=== PATIENT | male | born 1985 | race Caucasian/White ===

== ENCOUNTER 2018-05-12 01:19 | Day surgery (SDC) | payer OTHER ==
[2018-05-12] MEDS ORDERED: NORMAL SALINE 1000 ML 1,000 ML IV ONE (02:26)
[2018-05-12] MEDS ORDERED: ONDANSETRON HCL INJ/PF 4 MG/2 ML SDV IV ONE (02:26)
[2018-05-12] MEDS ORDERED: MORPHINE SULFATE 10 MG/ML INJ IV ONE (02:26)
--- NOTE | 2018-05-12 02:28 | ER Document Report ---
ED GI/ - General Chief Complaint: Abdominal Pain Stated Complaint: LOWER RIGHT ABDOMINAL PAIN Time Seen by Provider: 05/12/18 02:19 Notes: This is a 32-year-old male, healthy, no medical problems [employer] duty [employer] with a one-day history of indolent abdominal pain now localized to the right lower quadrant. Patient states that he just did not feel well over the last 24- 36 hours. Had a burning sensation in his mid abdomen. Began to get more painful over the the day. Had a few sips of Gatorade and did not feel like eating tonight. Pain began to get more significant in the periumbilical and right lower quadrant area. Now pain is mostly located on the right lower quadrant. Hurts to move his leg. Has vomited once. Slight fever. Denies any dysuria. Denies any pain in the testicles. TRAVEL OUTSIDE OF THE [place] IN LAST 30 DAYS: No - HPI Patient complains to provider of: Abdominal pain, Vomiting Onset: This morning Timing/Duration: Gradual, Worse Severity at maximum: Moderate Severity in ED: Moderate Pain Level: 3 Location: RLQ - Related Data Allergies/Adverse Reactions: ibuprofen Allergy (Verified 05/12/18 03:04) naproxen [From Aleve] Allergy (Verified 05/12/18 03:04) Hives Past Medical History - General Information source: Patient - Social History Smoking Status: Current Every Day Smoker Cigarette use (# per day): Yes Frequency of alcohol use: Occasional Drug Abuse: None Lives with: Spouse/Significant other Family History: Reviewed & Not Pertinent - Medical History Medical History: Negative Review of Systems - Review of Systems Notes: Constitutional: States he has chills and questionable fever. Does not feel good. EENT: denies: Eye discharge, Blurred vision, Tearing, Double vision, Nose congestion, Nose discharge, Throat swelling, Mouth pain Cardiovascular: denies: Palpitations, Heart racing, Orthopnea, Dyspnea. denies : Chest pain Respiratory: denies: Cough, Hurts to breathe, Wheezing, Shortness of breath Gastrointestinal: Patient complaining of abdominal pain with nausea and one episode of vomiting. Pain located in the right lower quadrant. Genitourinary: denies: Burning, Dysuria, Discharge, Frequency, Flank pain, Hematuria Musculoskeletal: denies: Joint pain, Joint swelling, Muscle pain, Muscle stiffness, back pain Hematologic/Lymphatic: denies: Anemia, Easy bleeding, Easy bruising, Blood clots Neurological/Psychological: denies: Confusion, Dementia, Depression, Loss of consciousness Physical Exam - Vital signs Vitals: Temp Pulse Resp BP Pulse Ox 98.4 F 83 17 161/90 H 100 05/12/18 01:35 05/12/18 01:35 05/12/18 01:35 05/12/18 01:35 05/12/18 01:35 Interpretation: Normal - General General appearance: Appears well, Alert - HEENT Head: Normocephalic, Atraumatic Eyes: Normal Pupils: PERRL - Respiratory Respiratory status: No respiratory distress Chest status: Nontender Breath sounds: Normal Chest palpation: Normal - Cardiovascular Rhythm: Regular Heart sounds: Normal auscultation Murmur: No - Abdominal Inspection: Normal Distension: No distension Bowel sounds: Normal Tenderness: Tender, McBurney's point, Guarding, Rebound Organomegaly: No organomegaly - Genitourinary Tenderness: Nontender Scrotum: Normal - Back Back: Normal, Nontender - Extremities General upper extremity: Normal inspection, Nontender, Normal color, Normal ROM , Normal temperature General lower extremity: Normal inspection, Nontender, Normal color, Normal ROM , Normal temperature, Normal weight bearing. No: Drew's sign - Neurological Neuro grossly intact: Yes Cognition: Normal Orientation: AAOx4 Barbara Coma Scale Eye Opening: Spontaneous Barbara Coma Scale Verbal: Oriented Barbara Coma Scale Motor: Obeys Commands [place] Coma Scale Total: 15 Speech: Normal Motor strength normal: LUE, RUE, LLE, RLE Sensory: Normal - Psychological Associated symptoms: Normal affect, Normal mood - Skin Skin Temperature: Warm Skin Moisture: Dry Skin Color: Normal Course - Re-evaluation Re-evalutation: 05/12/18 02:32 At this time we will get IV. Get some fluids. Zofran. Pain meds. CT scan of the abdomen. Labs and reassess. 05/12/18 04:05 Laboratory 05/12/18 05/12/18 02:48 02:48 WBC 16.9 H RBC 5.08 Hgb 16.1 Hct 46.9 MCV 92 MCH 31.7 MCHC 34.3 RDW 13.3 Plt Count 232 Seg Neutrophils % 82.4 H Lymphocytes % 9.8 L Monocytes % 5.8 Eosinophils % 1.1 Basophils % 0.9 Absolute Neutrophils 13.9 H Absolute Lymphocytes 1.7 Absolute Monocytes 1.0 Absolute Eosinophils 0.2 Absolute Basophils 0.2 Sodium 142.8 Potassium 3.9 Chloride 105 Carbon Dioxide 28 Anion Gap 10 BUN 13 Creatinine 1.02 Est GFR ( Amer) > 60 Est GFR (Non-Af Amer) > 60 Glucose 103 Calcium 9.2 Total Bilirubin 0.5 Direct Bilirubin 0.3 Neonat Total Bilirubin Not Reportable Neonat Direct Bilirubin Not Reportable Neonat Indirect Bili Not Reportable AST 44 ALT 44 Alkaline Phosphatase 65 Total Protein 7.9 Albumin 4.5 Abdomen/Pelvis CT 05/12/18 02:27 IMPRESSION: Mildly dilated appendix with multiple appendicoliths. No definite surrounding inflammatory changes. This may be due to early acute uncomplicated appendicitis. TECHNICAL DOCUMENTATION: Quality ID # 436: Final reports with documentation of one or more dose reduction techniques (e.g., Automated exposure control, adjustment of the mA and/or kV according to patient size, use of iterative reconstruction technique) 2010 [employer]- All Rights Reserved CT scan and physical exam as well as elevated WBC count all consistent with acute appendicitis. Consulted the surgeon on-call, Dr. Hughes. Will start on antibiotics. Continue with n.p.o. status and transfer to the OR shortly. - Vital Signs Vital signs: Temp Pulse Resp BP Pulse Ox 98.4 F 83 17 161/90 H 100 05/12/18 01:35 05/12/18 01:35 05/12/18 01:35 05/12/18 01:35 05/12/18 01:35 - Laboratory Result Diagrams: 05/12/18 02:48 05/12/18 02:48 Laboratory results interpreted by me: 05/12/18 02:48 WBC 16.9 H Seg Neutrophils % 82.4 H Lymphocytes % 9.8 L Absolute Neutrophils 13.9 H Discharge - Discharge Clinical Impression: Acute appendicitis Qualifiers: Acute appendicitis type: unspecified acute appendicitis type Qualified Code(s) : K35.80 - Unspecified acute appendicitis Condition: Good Disposition: ADMITTED INPATIENT Admitting Provider: Derrick Hughes Unit Admitted: OR
[2018-05-12 03:19] LABS: ABSOLUTE BASOPHILS # (AUTO) 0.2 10^3/uL (0.0-0.2); ABSOLUTE EOSINOPHILS # (AUTO) 0.2 10^3/uL (0.0-0.6); ABSOLUTE LYMPHOCYTES (AUTO) 1.7 10^3/uL (0.5-4.7); ABSOLUTE NEUT (AUTO) 13.9 10^3/uL (1.7-8.2); BASOPHILS % (AUTO) 0.9 % (0-2); EOSINOPHILS % (AUTO) 1.1 % (0-6); HEMATOCRIT 46.9 % (37.9-51.0); HEMOGLOBIN 16.1 g/dL (13.5-17.0); LYMPHOCYTES % (AUTO) 9.8 % (13-45); MEAN CORPUSCULAR HEMOGLOBIN 31.7 pg (27.0-33.4); MEAN CORPUSCULAR HGB CONC 34.3 g/dL (32.0-36.0); MEAN CORPUSCULAR VOLUME 92 fl (80-97); MONOCYTES % (AUTO) 5.8 % (3-13); PLATELET COUNT 232 10^3/uL (150-450); RED BLOOD COUNT 5.08 10^6/uL (4.35-5.55); RED CELL DISTRIBUTION WIDTH 13.3 % (11.5-14.0); SEGMENTED NEUTROPHILS % (AUTO) 82.4 % (42-78); TOTAL CELLS COUNTED % (AUTO) 100 %; WHITE BLOOD COUNT 16.9 10^3/uL (4.0-10.5)
[2018-05-12 03:42] LABS: ALANINE AMINOTRANSFERASE 44 U/L (21-72); ALBUMIN 4.5 g/dL (3.5-5.0); ALKALINE PHOSPHATASE 65 U/L (38-126); ANION GAP 10 (5-19); ASPARTATE AMINO TRANSFERASE 44 U/L (17-59); BILIRUBIN,DIRECT 0.3 mg/dL (0.0-0.4); BILIRUBIN,TOTAL 0.5 mg/dL (0.2-1.3); BLOOD UREA NITROGEN 13 mg/dL (7-20); CALCIUM 9.2 mg/dL (8.4-10.2); CARBON DIOXIDE 28 mmol/L (22-30); CHLORIDE 105 mmol/L (98-107); GLUCOSE 103 mg/dL (75-110); POTASSIUM 3.9 mmol/L (3.6-5.0); SODIUM 142.8 mmol/L (137-145); TOTAL PROTEIN 7.9 g/dL (6.3-8.2)
--- NOTE | 2018-05-12 04:00 | RADIOLOGY REPORT (SQ) ---
EXAM DESCRIPTION: CT ABDOMEN PELVIS WITH IV CONTRAST COMPLETED DATE/TME: 05/12/2018 02:27 CLINICAL HISTORY: 32 years, Male, rlq pain COMPARISON: None. TECHNIQUE: Axial CT images of the abdomen and pelvis were obtained after the administration of IV contrast. DLP 850 Images stored on PACS. All CT scanners at this facility use dose modulation, iterative reconstruction, and/or weight based dosing when appropriate to reduce radiation dose to as low as reasonably achievable (ALARA). [facility]: Dose Right [facility]: CareDose [facility]: Dose Right [facility]: Teradose 4D [facility]: [employer] LIMITATIONS: None. FINDINGS: Lung bases are clear. The liver, gallbladder, pancreas, spleen, and adrenal glands are unremarkable. Both kidneys appear unremarkable. There is no evidence of nephrolithiasis or hydronephrosis. There is no intraperitoneal free air or fluid. There is no lymphadenopathy. The aorta is unremarkable. The stomach and small bowel are unremarkable. The appendix measures up to 9 mm in diameter with multiple appendicoliths. No definite surrounding inflammatory changes. The colon is unremarkable. The urinary bladder and prostate are unremarkable. There are no lytic or blastic bone lesions IMPRESSION: Mildly dilated appendix with multiple appendicoliths. No definite surrounding inflammatory changes. This may be due to early acute uncomplicated appendicitis. TECHNICAL DOCUMENTATION: Quality ID # 436: Final reports with documentation of one or more dose reduction techniques (e.g., Automated exposure control, adjustment of the mA and/or kV according to patient size, use of iterative reconstruction technique) 2010 [employer]- All Rights Reserved
[2018-05-12] MEDS ORDERED: PIPERACILLIN/TAZOBACTAM 3.375 GM VIAL IV ONE (04:07)
[2018-05-12] MEDS ORDERED: HYDROMORPHONE HCL INJ/PF 2 MG/ML AMPULE IV ONE ×3 (04:07→06:05)
[2018-05-12] MEDS ORDERED: HYDROMORPHONE HCL INJ/PF 2 MG/ML AMPULE ONE (04:09)
[2018-05-12 06:00] LABS: APPEARANCE,URINE CLEAR; BILIRUBIN,URINE NEGATIVE (NEGATIVE); COLOR,URINE STRAW; GLUCOSE, URINE NEGATIVE (NEGATIVE); KETONES,URINE NEGATIVE (NEGATIVE); LEUKOCYTE ESTERASE,URINE NEGATIVE (NEGATIVE); NITRITE,URINE NEGATIVE (NEGATIVE); PROTEIN,URINE NEGATIVE (NEGATIVE); URINE SPECIFIC GRAVITY 1.043; UROBILINOGEN,URINE NEGATIVE mg/dL (<2.0)
[2018-05-12] MEDS ORDERED: NORMAL SALINE 1000 ML 1,000 ML IV PRN (06:03)
--- NOTE | 2018-05-12 06:20 | PDOC H&P ---
History of Present Illness Admission Date/PCP: 05/12/18 04:14 NEGRO MCCOY DO Patient complains of: abdominal pains History of Present Illness: MARY HARDING is a 32 year old male who c/o pertumbilical pains yesterday at 12 pm. This gradually got worse and associated with N/V. Localized to RLQ and went to ED where a CT scan of the abdomen showed acute appendicitis. Social History Lives with: Spouse/Significant other Smoking Status: Current Every Day Smoker Family History Family History: Reviewed & Not Pertinent Parental Family History Reviewed: Yes Children Family History Reviewed: No Sibling(s) Family History Reviewed.: No Medication/Allergy Allergies/Adverse Reactions: ibuprofen Allergy (Verified 05/12/18 03:04) naproxen [From Aleve] Allergy (Verified 05/12/18 03:04) Hives Review of Systems Constitutional: PRESENT: chills Eyes: PRESENT: other - no visual/hearing changes Cardiovascular: PRESENT: other - no cough/chest pains Gastrointestinal: PRESENT: abdominal pain, nausea, vomiting Genitourinary: PRESENT: other - no dysuria Hematologic/Lymphatic: PRESENT: other - no easy bruising Physical Exam Vital Signs: Temp Pulse Resp BP Pulse Ox 98.4 F 83 17 161/90 H 100 05/12/18 01:35 05/12/18 01:35 05/12/18 01:35 05/12/18 01:35 05/12/18 01:35 Intake & Output 05/10/18 05/11/18 05/12/18 06:59 06:59 06:59 Intake Total 1000 Balance 1000 General appearance: PRESENT: mild distress Head exam: PRESENT: atraumatic Eye exam: PRESENT: conjunctiva pink Mouth exam: PRESENT: dry mucosa Neck exam: PRESENT: full ROM Respiratory exam: PRESENT: clear to auscultation cece Cardiovascular exam: PRESENT: RRR Pulses: PRESENT: normal radial pulses GI/Abdominal exam: PRESENT: soft, tenderness - RLQ Rectal exam: PRESENT: deferred Extremities exam: PRESENT: full ROM Musculoskeletal exam: PRESENT: ambulatory Neurological exam: PRESENT: alert, oriented to person, oriented to place, oriented to time, oriented to situation Psychiatric exam: PRESENT: appropriate affect Skin exam: PRESENT: normal color, warm Results Laboratory Results: 05/12/18 05:45 Urine Color STRAW Urine Appearance CLEAR Urine pH 5.0 Ur Specific [place] 1.043 Urine Protein NEGATIVE Urine Glucose (UA) NEGATIVE Urine Ketones NEGATIVE Urine Blood NEGATIVE Urine Nitrite NEGATIVE Ur Leukocyte Esterase NEGATIVE Urine WBC (Auto) 0 Impressions: Abdomen/Pelvis CT 05/12/18 02:27 IMPRESSION: Mildly dilated appendix with multiple appendicoliths. No definite surrounding inflammatory changes. This may be due to early acute uncomplicated appendicitis. TECHNICAL DOCUMENTATION: Quality ID # 436: Final reports with documentation of one or more dose reduction techniques (e.g., Automated exposure control, adjustment of the mA and/or kV according to patient size, use of iterative reconstruction technique) 2010 [employer]- All Rights Reserved Assessment & Plan - Time Time Spent: 30 to 50 Minutes - Inpatient Certification Medical Necessity: Need For IV Fluids, Need for Pain Control, Need for IV Antibiotics, Need for Surgery - Plan Summary Plan Summary: NPO IVF IV antibiotics For Lap Appendectomy
[2018-05-12] MEDS ORDERED: BUPIVACAINE HCL 0.25 % INJ/PF (2.5 MG/1 ML) 30 ML VIAL ONE (08:06)
[2018-05-12] MEDS ORDERED: ALBUTEROL SULFATE HFA (90 MCG/PUFF) 200 PUFF/8.5 GM MDI IH ONE (08:24)
[2018-05-12] MEDS ORDERED: ALBUTEROL SULFATE 0.083% NEB 2.5 MG/3 ML AMPUL NEB ONE (08:24)
[2018-05-12] MEDS ORDERED: MIDAZOLAM 2 MG/2 ML INJ ONE (08:51)
[2018-05-12] MEDS ORDERED: FENTANYL CITRATE INJ/PF 250 MCG/5 ML AMPULE ONE (08:51)
[2018-05-12] MEDS ORDERED: ACETAMINOPHEN 1,000 MG/100 ML RTUPB IV ONE (08:52)
[2018-05-12] MEDS ORDERED: PROPOFOL INJ 200 MG/20 ML VIAL IV ONE (08:52)
[2018-05-12] MEDS ORDERED: SUGAMMADEX SODIUM 200 MG/2 ML SDV IV ONE (09:35)
--- NOTE | 2018-05-12 10:15 | Operative Report ---
Operative Report DATE OF SURGERY: 05/12/18 PREOPERATIVE DIAGNOSIS: Acute appendicitis POSTOPERATIVE DIAGNOSIS: Same with intra-abdominal adhesions OPERATION: 1. Laparoscopic lysis of adhesions. 2. Laparoscopic appendectomy SURGEON: JW CARPENTER ANESTHESIA: GA TISSUE REMOVED OR ALTERED: 1 appendix COMPLICATIONS: None ESTIMATED BLOOD LOSS: Scant INTRAOPERATIVE FINDINGS: See below PROCEDURE: The patient was taken to the preop holding area the main operating room regionalized. Patient had previously voided. The arms were abducted, the abdomen previously clipped of hair, then prepped and draped in sterile fashion Surgical plan surgical timeout conducted. Markings were made on the skin for 3 port laparoscopic appendectomy. The skin was anesthetized at the designated sites with quarter percent Marcaine. Supraumbilical vertical incision made with the knife and Veress needle inserted the peritoneal cavity and pneumoperitoneum was established. Veress needle was removed, a 5 mm port was inserted and a 5 mm flexible viewing scope was inserted. Under direct visualization 2 additional ports are placed one 5 mm suprapubic position and a 12 mm left lower quadrant. Findings were significant for no evidence of visceral or vascular or abdominal structures. The cecum and right colon were adhesed to the anterior abdominal wall. The exact etiology of these adhesions was unclear. They did not appear to be related to the acute appendicitis. These appear to be chronic adhesions. There were long, linear and affixing the anterior surface of the cecum and ascending colon to the intra-abdominal wall. They were taken down under direct visualization using the LigaSure device. Once this was accomplished with able to rotate the cecum medially, and begin extirpating the appendix from its retrocecal position. This too was facilitated by using the LigaSure device, dividing adhesive bands between the inferior and posterior surface of the appendix which was curled up underneath the cecum, and the pelvic wall posteriorly. The appendix came up nicely. We took the mesoappendix down with the LigaSure device. The appendix was now suspended at its base with minimal inflammation at the shoulder of the appendix. We brought onto the field a 45 mm blue load Endo ANJELICA stapler and amputated a small portion of the mesoappendix and the appendix proper at its base. The appendix is placed in an Endobag and brought to the patient to the left lower quadrant port site. There is a small bleeding site along the staple line which was managed elegantly with point cautery. We suctioned out some purulent drainage from the pelvis and irrigated this area out in the localized fashion. We did not do widespread irrigation. The deep pelvis and the raysa-rectal space was evacuated of any residual fluid. Fluid along the right paracolic gutter, and the right lobe of the liver was also evacuated. At this point we reinspected the staple line and it was healthy without bleeding. Photos were taken. We level the patient out, aspirated any residual irrigant and concluded the operation. All ports removed under direct visualization, pneumoperitoneum was evacuated and wounds closed with 0 Vicryl 3 -0 Vicryl benzoin and Steri-Strips. Patient tolerated the procedure well, taken to recovery room in stable condition after successful extubation.
[2018-05-12] MEDS ORDERED: FENTANYL CITRATE INJ/PF 100 MCG/2 ML AMPUL IV PRN ×3 (10:17)
[2018-05-12] MEDS ORDERED: DIPHENHYDRAMINE HCL 50 MG/ML VIAL IV PRN (10:17)
[2018-05-12] MEDS ORDERED: OXYCODONE-ACETAMINOPHEN 5-325 MG TABLET PO PRN ×2 (10:17)
[2018-05-12] MEDS ORDERED: MORPHINE SULFATE 10 MG/ML INJ IV PRN ×2 (10:17→11:11)
[2018-05-12] MEDS ORDERED: MEPERIDINE HCL/PF INJ 25 MG/1 ML DISP.SYRIN IV PRN (10:17)
[2018-05-12] MEDS ORDERED: PROMETHAZINE HCL INJ 25 MG/1 ML VIAL IV PRN ×2 (10:17)
[2018-05-12] MEDS: FENTANYL CITRATE INJ/PF 100 MCG/2 ML AMPUL ONE ×2 (10:34→10:39)
[2018-05-12] MEDS ORDERED: ONDANSETRON HCL INJ/PF 4 MG/2 ML SDV IV PRN (11:11)
[2018-05-12] MEDS: OXYCODONE-ACETAMINOPHEN 5-325 MG TABLET PO PRN ×2 (12:13→15:25)
[2018-05-12] MEDS ORDERED: PIPERACILLIN SODIUM/TAZOBACTAM 3.375 GM in NORMAL SALINE 100 ML IV SCH (14:00)
[2018-05-12 15:34] VITALS: BP 134/82
== END 2018-05-12 16:10 | disposition home or self-care (01) ==
LOC: ER 01:19 → UNDOADMIN 04:14 → EH 04:14 → 2N 11:32 → OROUT 11:43 → UNDODISIN 16:10 → OROUT 16:10
PROVIDERS: ATTEND Surgery
DX: K35.80 Unspecified acute appendicitis (principal); F17.210 Nicotine dependence, cigarettes, uncomplicated; Z88.6 Allergy status to analgesic agent
CPT/HCPCS: 99285; 96374; 96375; 36415; 85025; 80053; 81001; 88304 ×2; 74177; 44970; J2250; J3010 ×2; J2270; J1170; J2405; J7030; J2704; J2543; J0131; J3490; 840